=== PATIENT | female | born 1960 | race Caucasian/White ===

== ENCOUNTER 2016-05-20 21:52 | Emergency (ER) | payer OTHER ==
--- NOTE | 2016-05-20 22:50 | ED NURSING NOTES ---
Clinical Report - Nurses [facility] [address] [place] [address] 05/20/2016 21:53 Patient: YELITZA CHRIS TRIAGE Triage time 22:06. Acuity: LEVEL 3. Chief Complaint: NAUSEA and VOMITING and ("high blood pressure" of "145" with headache vomiting x4 since yesterday). Alert. ELLIOTT COMA SCORE: [place] Coma Scale: 15- eyes open spontaneously (4); best verbal response- oriented x 4 (5); best motor response- obeys commands (6). --22:12 Dannie Ndiaye R.N. 22:05 05/20/16. BP: 129/69. HR: 73. RR: 18. O2 saturation: 95% on room air. Temp: 98.4 F (oral). Pain level now: 07/12. --22:12 Dannie Ndiaye R.N. Weight: 84 kg estimated. Height/Length: 66 inches Per Patient. BMI: 29.9. --22:05 Dannie Ndiaye R.N. Medications Naproxen Oral. --22:10 Dannie Ndiaye R.N. Methocarbamol Oral. --22:10 Dannie Ndiaye R.N. Allergies No Known Drug Allergy. --22:07 Dannie Ndiaye R.N. History Arrived by private vehicle. Historian: patient and family. Accompanied by family. This started yesterday. She has had nausea and vomiting. SOCIAL HX: Never smoker. No alcohol use or drug use. SELF HARM ASSESSMENT: A self harm assessment was performed. The patient answered "no" to the question "Have you recently felt down, depressed, or hopeless?", "Have you noticed less interest or pleasure in doing things?", "Do you have thoughts of harming or killing yourself?", "Are you here because you tried to hurt yourself?", "Have you ever tried to hurt yourself before today?" and "Have you recently had thoughts about harming or killing others?". FALL RISK ASSESSMENT: Fall risk assessment completed. No fall risk identified. LEARNING NEEDS ASSESSMENT: The learning needs assessment revealed no barriers. (speaks fijian). SKIN INTEGRITY ASSESSMENT: Skin integrity risk assessment completed. No skin integrity risk identified. --22:12 Dannie Ndiaye R.N. PROBLEMS: Migraine Headache. Hypertension. --22:10 Dannie Ndiaye R.N. ADDITIONAL SURGERIES: Tubal Ligation. --22:10 Dannie Ndiaye R.N. Interventions ID band on patient. To treatment room. --22:12 Dannie Ndiaye R.N. PHYSICAL ASSESSMENT ( Patient states having a headache since yesterday, with nausea and vomiting starting yesterday). GENERAL / NEURO / PSYCH: Alert. Oriented X 4. HEENT: Mucous membranes are pink. RESPIRATORY: Respirations not labored. CVS: Capillary refill less than 2 seconds. GI / : Abdomen soft. SKIN: Skin is warm and dry. --22:13 Dannie Ndiaye R.N. NURSING PROGRESS NOTES Pulse oximeter and NIBP monitor placed on patient. Patient gowned. Reassurance given. Two patient identifiers checked. Call light placed in reach. Side rails up. Bed placed in lowest position. Brakes of bed on. Patient ready for evaluation- chart flagged. Patient waiting for evaluation. --22:13 Dannie Ndiaye R.N. 22:41 05/20/2016 Toradol (Ketorolac Tromethamine) IM 60 mg given. Given in the left gluteus amira. Allergies verified and confirmed 5 rights. --22:46 Dannie Ndiaye R.N. 22:41 05/20/2016 Benadryl (DiphenhydrAMINE HCl) IM 50 mg given. Given in the left gluteus amira. Allergies verified, confirmed 5 rights and sedative warning given to the patient and patient's family. --22:46 Dannie Ndiaye R.N. 22:42 05/20/2016 Reglan (Metoclopramide HCl) IM 10 mg given. Given in the left gluteus amira. Allergies verified and confirmed 5 rights. --22:47 Dannie Ndiaye R.N. DISPOSITION / DISCHARGE Condition at departure: stable. The goals identified in the patient's plan of care were met. Learning barriers present. Ability to learn limited by language barrier; teaching performed with the family. Learning barriers note: patient speaks fijian, understands some welsh and verbalizes understanding, daughter of patient verbalizes undertanding of discharge instructions as well. Discharge instructions provided and reviewed with the patient and family. Reviewed warnings. Reviewed medication(s) side effects, precautions, dosing and course information. Prescription(s) given to the patient. Treatments reviewed. Reviewed referrals for followup. Patient and family verbalized understanding. Written instructions provided in [place] Islander. The patient was discharged home and accompanied by family. She left the Emergency Department ambulatory and via private vehicle. Family member driving. --23:05 Dannie Ndiaye R.N. 23:05 05/20/16. BP: 130/71. HR: 62. RR: 18. O2 saturation: 96% on room air. Temp: 97.8 F. Mcwilliams-French pain scale: 4/10. --23:06 Dannie Ndiaye R.N. Locked/Released at 05/20/2016 23:08 by Dannie Ndiaye R.N.
--- NOTE | 2016-05-20 22:50 | ED CLINICAL REPORT ---
Clinical Report - Physicians/Mid Levels [facility] [address] [place] [address] 05/20/2016 21:53 [id number] Time Seen: 22:14; initial patient contact, initial documentation, patient care assumed. Arrived- By private vehicle. Historian- patient and daughter (pt speaks jordanian). HISTORY OF PRESENT ILLNESS Chief Complaint: VOMITING. This started today and is still present. No recent travel. She has had nausea. She has had vomiting (x4 episodes). No bilious emesis, feculent emesis, blood-tinged emesis, coffee-grounds emesis or frankly bloody emesis. No unusually dark emesis. No diarrhea, black stools, bloody stools, abdominal pain or constipation. No flank pain, history of possible bad food exposure, known contact with a sick individual or change in routine. Has not recently been camping or on antibiotics. The illness is described as moderate. (bp at home was 140/80, concerned that bp was too high). Similar symptoms previously: Frequently, as bad. ( has headaches a couple of times a week). Recent medical care: Not recently seen/assessed. REVIEW OF SYSTEMS No fever, sore throat, cough, chest pain or difficulty breathing. She has had a headache. head hurts all in the front and back, similar to previous headaches. All systems otherwise negative, except as recorded above. PAST HISTORY See nurses notes. PROBLEMS: Migraine Headache. Hypertension. --22:10 Dannie Ndiaye R.N. ADDITIONAL SURGERIES: Tubal Ligation. --22:10 Dannie Ndiaye R.N. SOCIAL HISTORY Never smoker. No alcohol use or drug use. No recent travel. Is a local resident. FAMILY HISTORY Negative. ADDITIONAL NOTES The nursing notes have been reviewed with agreement regarding the chief complaint, HPI, ROS, PMH and patient medications and allergies. PHYSICAL EXAM Vital Signs: 05/20/2016 22:05 BP: 129/69. HR: 73. RR: 18. O2 saturation: 95%. Temp: 98.4 F. Pain level now: 5/10. Have been reviewed as normal and appear to be correct. Appearance: Alert. Oriented X3. No acute distress. Eyes: Pupils equal, round and reactive to light. Eyes normal inspection. ENT: Ears normal. Nose normal. Pharynx normal. Neck: Normal inspection. Neck supple. CVS: Normal heart rate and rhythm. Heart sounds normal. Pulses normal. Respiratory: No respiratory distress. Breath sounds normal. Abdomen: Soft and nontender. Back: Normal inspection. Skin: Skin warm and dry. Normal skin color. No rash. Normal skin turgor. Extremities: Extremities exhibit normal ROM. No lower extremity edema. Neuro: Oriented X 3. No motor deficit. No sensory deficit. PROGRESS AND PROCEDURES Patient and family counseled in person regarding the patient's stable condition and diagnosis. 22:50. Differential Diagnosis: I considered migraine, cluster headache, subarachnoid hemorrhage, intracranial bleed, vascular malformation, cerebral aneurysm, vascular dissection, vasculitis, temporal arteritis, sinusitis, influenza, viral syndrome, analgesic abuse, hypoglycemia, trigeminal neuralgia and occipital neuralgia as a possible cause of headache in this patient. This is a partial list of diagnoses considered. (flu, viral illness). Above considerations are based on history and physical exam. Differential diagnosis was discussed with patient. Disposition: Discharged home in good and improved condition (22:50). Condition: good and stable. CLINICAL IMPRESSION Episodic, poorly controlled periodic headache syndrome. Intractable vomiting with nausea. No dehydration or volume depletion. Not bilious. INSTRUCTIONS Warnings: GENERAL WARNINGS: Return or contact your physician immediately if your condition worsens or changes unexpectedly, if not improving as expected, or if other problems arise. SPECIFICALLY, return if you develop pain in the abdomen or pelvis, fever, the inability to keep fluids down, blood in vomitus, blood in diarrhea, fainting or lightheadedness. Prescription Medications: Zofran 4 mg: Take 1 orally every six hours as needed for nausea/vomiting. Dispense ten (10). No refills. Substitution is permissible. Fioricet: Take 1-2 orally every 4 hours as needed for headache. Dispense twenty (20). No refills. Substitution is permissible. Follow-up: Follow up with your doctor in about two days even if well. Call for an appointment. Summary of care provided to patient. Understanding of the discharge instructions verbalized by patient. (Electronically signed by Hilary Ortiz A.R.N.P. 05/20/2016 23:30)
--- NOTE | 2016-05-20 22:50 | ED CLINICAL REPORT ---
Clinical Report - Physicians/Mid Levels [facility] [address] [place] [place] [address] 05/20/2016 21:53 [id number] Time Seen: 22:14; initial patient contact, initial documentation, patient care assumed. Arrived- By private vehicle. Historian- patient and daughter (pt speaks [place] islander). HISTORY OF PRESENT ILLNESS Chief Complaint: VOMITING. This started today and is still present. No recent travel. She has had nausea. She has had vomiting (x4 episodes). No bilious emesis, feculent emesis, blood-tinged emesis, coffee-grounds emesis or frankly bloody emesis. No unusually dark emesis. No diarrhea, black stools, bloody stools, abdominal pain or constipation. No flank pain, history of possible bad food exposure, known contact with a sick individual or change in routine. Has not recently been camping or on antibiotics. The illness is described as moderate. (bp at home was 140/80, concerned that bp was too high). Similar symptoms previously: Frequently, as bad. ( has headaches a couple of times a week). Recent medical care: Not recently seen/assessed. REVIEW OF SYSTEMS No fever, sore throat, cough, chest pain or difficulty breathing. She has had a headache. head hurts all in the front and back, similar to previous headaches. All systems otherwise negative, except as recorded above. PAST HISTORY See nurses notes. PROBLEMS: Migraine Headache. Hypertension. --22:10 Dannie Ndiaye R.N. ADDITIONAL SURGERIES: Tubal Ligation. --22:10 Dannie Ndiaye R.N. SOCIAL HISTORY Never smoker. No alcohol use or drug use. No recent travel. Is a local resident. FAMILY HISTORY Negative. ADDITIONAL NOTES The nursing notes have been reviewed with agreement regarding the chief complaint, HPI, ROS, PMH and patient medications and allergies. PHYSICAL EXAM Vital Signs: 05/20/2016 22:05 BP: 129/69. HR: 73. RR: 18. O2 saturation: 95%. Temp: 98.4 F. Pain level now: 5/10. Have been reviewed as normal and appear to be correct. Appearance: Alert. Oriented X3. No acute distress. Eyes: Pupils equal, round and reactive to light. Eyes normal inspection. ENT: Ears normal. Nose normal. Pharynx normal. Neck: Normal inspection. Neck supple. CVS: Normal heart rate and rhythm. Heart sounds normal. Pulses normal. Respiratory: No respiratory distress. Breath sounds normal. Abdomen: Soft and nontender. Back: Normal inspection. Skin: Skin warm and dry. Normal skin color. No rash. Normal skin turgor. Extremities: Extremities exhibit normal ROM. No lower extremity edema. Neuro: Oriented X 3. No motor deficit. No sensory deficit. PROGRESS AND PROCEDURES Patient and family counseled in person regarding the patient's stable condition and diagnosis. 22:50. Differential Diagnosis: I considered migraine, cluster headache, subarachnoid hemorrhage, intracranial bleed, vascular malformation, cerebral aneurysm, vascular dissection, vasculitis, temporal arteritis, sinusitis, influenza, viral syndrome, analgesic abuse, hypoglycemia, trigeminal neuralgia and occipital neuralgia as a possible cause of headache in this patient. This is a partial list of diagnoses considered. (flu, viral illness). Above considerations are based on history and physical exam. Differential diagnosis was discussed with patient. Disposition: Discharged home in good and improved condition (22:50). Condition: good and stable. CLINICAL IMPRESSION Episodic, poorly controlled periodic headache syndrome. Intractable vomiting with nausea. No dehydration or volume depletion. Not bilious. INSTRUCTIONS Warnings: GENERAL WARNINGS: Return or contact your physician immediately if your condition worsens or changes unexpectedly, if not improving as expected, or if other problems arise. SPECIFICALLY, return if you develop pain in the abdomen or pelvis, fever, the inability to keep fluids down, blood in vomitus, blood in diarrhea, fainting or lightheadedness. Prescription Medications: Zofran 4 mg: Take 1 orally every six hours as needed for nausea/vomiting. Dispense ten (10). No refills. Substitution is permissible. Fioricet: Take 1-2 orally every 4 hours as needed for headache. Dispense twenty (20). No refills. Substitution is permissible. Follow-up: Follow up with your doctor in about two days even if well. Call for an appointment. Summary of care provided to patient. Understanding of the discharge instructions verbalized by patient. (Electronically signed by Hilary Ortiz A.R.N.P. 05/20/2016 23:30)
--- NOTE | 2016-05-20 22:50 | ED ORDER SUMMARY ---
..... Patient: YELITZA CHRIS OrderSheet [facility] VisitID: [id number] [address] [place] [address] 56y, F Registration Date/Time: 05/20/2016 ORDER SHEET Weight: 84.0 kg (estimated) Allergies: No Known Drug Allergy GENERAL ORDERS: MEDICATION ORDERS: Toradol IM 60 mg (NOW) (22:25 05/20/2016 HBivens A.R.N.P.) (22:46 DDavis R.N.) Benadryl IM 50 mg (NOW) (22:05/20/2016 HBivens A.R.N.P.) (22:46 DDavis R.N.) - (Reglan 10mg im stat) (22:05/20/2016 HBivens A.R.N.P.) (22:47 DDavis R.N.) IV FLUIDS: ORDER SHEET NOTES: [Electronically signed by Dannie Ndiaye R.N. (23:08 05/20/2016)] [Electronically signed by Hilary OrtizRJustineN.PJustine (23:30 05/20/2016)] [Electronically locked/signed by Dannie Ndiaye R.N. (23:05/20/2016)]
--- NOTE | 2016-05-20 22:50 | ED ORDER SUMMARY ---
..... Patient: YELITZA CHRIS OrderSheet [facility] VisitID: [id number] [address] [place] [address] 56y, F Registration Date/Time: 05/20/2016 ORDER SHEET Weight: 84.0 kg (estimated) Allergies: No Known Drug Allergy GENERAL ORDERS: MEDICATION ORDERS: Toradol IM 60 mg (NOW) (22:25 05/20/2016 HBivens A.R.N.P.) (22:46 DDavis R.N.) Benadryl IM 50 mg (NOW) (22:05/20/2016 HBivens A.R.N.P.) (22:46 DDavis R.N.) - (Reglan 10mg im stat) (22:05/20/2016 HBivens A.R.N.P.) (22:47 DDavis R.N.) IV FLUIDS: ORDER SHEET NOTES: [Electronically signed by Dannie Ndiaye R.N. (23:08 05/20/2016)] [Electronically signed by Hilary OrtizRJustineN.PJustine (23:30 05/20/2016)] [Electronically locked/signed by Dannie Ndiaye R.N. (23:05/20/2016)]
--- NOTE | 2016-05-20 22:50 | ED NURSING NOTES ---
Clinical Report - Nurses [facility] [address] [place] [address] 05/20/2016 21:53 Patient: YELITZA CHRIS TRIAGE Triage time 22:06. Acuity: LEVEL 3. Chief Complaint: NAUSEA and VOMITING and ("high blood pressure" of "145" with headache vomiting x4 since yesterday). Alert. ELLIOTT COMA SCORE: [place] Coma Scale: 15- eyes open spontaneously (4); best verbal response- oriented x 4 (5); best motor response- obeys commands (6). --22:12 Dannie Ndiaye R.N. 22:05 05/20/16. BP: 129/69. HR: 73. RR: 18. O2 saturation: 95% on room air. Temp: 98.4 F (oral). Pain level now: 07/12. --22:12 Dannie Ndiaye R.N. Weight: 84 kg estimated. Height/Length: 66 inches Per Patient. BMI: 29.9. --22:05 Dannie Ndiaye R.N. Medications Naproxen Oral. --22:10 Dannie Ndiaye R.N. Methocarbamol Oral. --22:10 Dannie Ndiaye R.N. Allergies No Known Drug Allergy. --22:07 Dannie Ndiaye R.N. History Arrived by private vehicle. Historian: patient and family. Accompanied by family. This started yesterday. She has had nausea and vomiting. SOCIAL HX: Never smoker. No alcohol use or drug use. SELF HARM ASSESSMENT: A self harm assessment was performed. The patient answered "no" to the question "Have you recently felt down, depressed, or hopeless?", "Have you noticed less interest or pleasure in doing things?", "Do you have thoughts of harming or killing yourself?", "Are you here because you tried to hurt yourself?", "Have you ever tried to hurt yourself before today?" and "Have you recently had thoughts about harming or killing others?". FALL RISK ASSESSMENT: Fall risk assessment completed. No fall risk identified. LEARNING NEEDS ASSESSMENT: The learning needs assessment revealed no barriers. (speaks lao). SKIN INTEGRITY ASSESSMENT: Skin integrity risk assessment completed. No skin integrity risk identified. --22:12 Dannie Ndiaye R.N. PROBLEMS: Migraine Headache. Hypertension. --22:10 Dannie Ndiaye R.N. ADDITIONAL SURGERIES: Tubal Ligation. --22:10 Dannie Ndiaye R.N. Interventions ID band on patient. To treatment room. --22:12 Dannie Ndiaye R.N. PHYSICAL ASSESSMENT ( Patient states having a headache since yesterday, with nausea and vomiting starting yesterday). GENERAL / NEURO / PSYCH: Alert. Oriented X 4. HEENT: Mucous membranes are pink. RESPIRATORY: Respirations not labored. CVS: Capillary refill less than 2 seconds. GI / : Abdomen soft. SKIN: Skin is warm and dry. --22:13 Dannie Ndiaye R.N. NURSING PROGRESS NOTES Pulse oximeter and NIBP monitor placed on patient. Patient gowned. Reassurance given. Two patient identifiers checked. Call light placed in reach. Side rails up. Bed placed in lowest position. Brakes of bed on. Patient ready for evaluation- chart flagged. Patient waiting for evaluation. --22:13 Dannie Ndiaye R.N. 22:41 05/20/2016 Toradol (Ketorolac Tromethamine) IM 60 mg given. Given in the left gluteus amira. Allergies verified and confirmed 5 rights. --22:46 Dannie Ndiaye R.N. 22:41 05/20/2016 Benadryl (DiphenhydrAMINE HCl) IM 50 mg given. Given in the left gluteus amira. Allergies verified, confirmed 5 rights and sedative warning given to the patient and patient's family. --22:46 Dannie Ndiaye R.N. 22:42 05/20/2016 Reglan (Metoclopramide HCl) IM 10 mg given. Given in the left gluteus amira. Allergies verified and confirmed 5 rights. --22:47 Dannie Ndiaye R.N. DISPOSITION / DISCHARGE Condition at departure: stable. The goals identified in the patient's plan of care were met. Learning barriers present. Ability to learn limited by language barrier; teaching performed with the family. Learning barriers note: patient speaks lao, understands some turkmen and verbalizes understanding, daughter of patient verbalizes undertanding of discharge instructions as well. Discharge instructions provided and reviewed with the patient and family. Reviewed warnings. Reviewed medication(s) side effects, precautions, dosing and course information. Prescription(s) given to the patient. Treatments reviewed. Reviewed referrals for followup. Patient and family verbalized understanding. Written instructions provided in Cym[place]. The patient was discharged home and accompanied by family. She left the Emergency Department ambulatory and via private vehicle. Family member driving. --23:05 Dannie Ndiaye R.N. 23:05 05/20/16. BP: 130/71. HR: 62. RR: 18. O2 saturation: 96% on room air. Temp: 97.8 F. Mcwilliams-French pain scale: 4/10. --23:06 Dannie Ndiaye R.N. Locked/Released at 05/20/2016 23:08 by Dannie Ndiaye R.N.
--- NOTE | 2016-05-20 23:30 | ED MAR SUMMARY ---
..... Medication Administration Record [facility] [address] [place] [address] Patient: YELITZA CHRIS Visit ID: [id number] 56y, F Weight: 84.0 kg Height/Length: 66 in BMI: 29.9 ALLERGIES: No Known Drug Allergy Given 22:05/20/2016 Dannie Ndiaye RJustineN. Medication Administered: TORADOL [IM] (KETOROLAC TROMETHAMINE), Dose: 60 mg IM. Medication Ordered: Toradol IM 60 mg (NOW). Given 22:05/20/2016 Dannie Ndiaye R.N. Medication Administered: BENADRYL [IM] (DIPHENHYDRAMINE HCL), Dose: 50 mg IM. Medication Ordered: Benadryl IM 50 mg (NOW). Given 22:05/20/2016 Dannie Ndiaye, R.N. Medication Administered: REGLAN [IM] (METOCLOPRAMIDE HCL), Dose: 10 mg IM. Medication Ordered: - (Reglan 10mg im stat).
--- NOTE | 2016-05-20 23:30 | ED MED RECONCILIATION SUMMARY ---
Patient: YELITZA CHRIS Medication Reconciliation Report [facility] VisitID: [id number] [address] [place] [address] 56y, F Registration Date/Time: 05/20/2016 Weight: 84.0 kg Height/Length: 66 in. BMI: 29.9 ALLERGIES: No Known Drug Allergy The patient's Home Medications are listed below: THE FOLLOWING MEDICATIONS NEED TO BE RECONCILED: Methocarbamol Oral Naproxen Oral The source(s) of the original Home Medication information: Not obtained. The following Medications were given to the patient in the Emergency Department: Toradol [IM] IM 60 mg, administered: 05/20/2016 10:41:00 PM Benadryl [IM] IM 50 mg, administered: 05/20/2016 10:41:00 PM Reglan [IM] IM 10 mg, administered: 05/20/2016 10:42:00 PM The following Medications were prescribed to the patient: Zofran 4 mg: Take 1 orally every six hours as needed for nausea/vomiting. Dispense ten (10). No refills. Substitution is permissible. -- Hilary Ortiz, A.R.N.P. Fioricet: Take 1-2 orally every 4 hours as needed for headache. Dispense twenty (20). No refills. Substitution is permissible. -- Hilary Ortiz A.R.N.P.
--- NOTE | 2016-05-20 23:30 | ED DISCHARGE INSTRUCTIONS ---
Patient: YELITZA CHRIS General Instructions [facility] VisitID: [id number] [place] [address] 56y, F Registration Date/Time: 05/20/2016 Episodic, poorly controlled periodic headache syndrome. Intractable vomiting with nausea. No dehydration or volume depletion. Not bilious. INSTRUCTIONS Warnings: GENERAL WARNINGS: Return or contact your physician immediately if your condition worsens or changes unexpectedly, if not improving as expected, or if other problems arise. SPECIFICALLY, return if you develop pain in the abdomen or pelvis, fever, the inability to keep fluids down, blood in vomitus, blood in diarrhea, fainting or lightheadedness. Prescription Medications: Zofran 4 mg: Take 1 orally every six hours as needed for nausea/vomiting. Dispense ten (10). No refills. Substitution is permissible. Fioricet: Take 1-2 orally every 4 hours as needed for headache. Dispense twenty (20). No refills. Substitution is permissible. Follow-up: Follow up with your doctor in about two days even if well. Call for an appointment. Summary of care provided to patient. Understanding of the discharge instructions verbalized by patient. ADDITIONAL INFORMATION Vomiting [6Yr-Adult] Vomiting is a common symptom that may be due to different causes. These include gastroenteritis ("stomach flu"), food poisoning and gastritis. There are other more serious causes of vomiting which may be hard to diagnose early in the illness. Therefore, it is important to watch for the warning signs listed below. The main danger from repeated vomiting is dehydration. This is due to excess loss of water and minerals from the body. When this occurs, body fluids must be replaced. Home Care: If symptoms are severe, rest at home for the next 24 hours. You may use acetaminophen (Tylenol) or ibuprofen (Motrin, Advil) to control fever, unless another medicine was prescribed. [NOTE : If you have chronic liver or kidney disease or ever had a stomach ulcer or GI bleeding, talk with your doctor before using these medicines.] (Aspirin should never be used in anyone under 18 years of age who is ill with a fever. It may cause severe liver damage.) Avoid tobacco and alcohol use, which may worsen your symptoms. If medicines for vomiting were prescribed, take as directed. Once vomiting stops, then follow these guidelines: During The First 12-24 Hours follow the diet below: FRUIT JUICES: Apple, grape juice, clear fruit drinks, and electrolyte replacement drinks. BEVERAGES: Soft drinks without caffeine; mineral water (plain or flavored), decaffeinated tea and coffee. SOUPS: Clear broth, consomm and bouillon DESSERTS: Plain gelatin, popsicles and fruit juice bars. As you feel better, you may add 6-8 ounces of yogurt per day. During The Next 24 Hours you may add the following to the above: Hot cereal, plain toast, bread, rolls, crackers Plain noodles, rice, mashed potatoes, chicken noodle or rice soup Unsweetened canned fruit (avoid pineapple), bananas Limit caffeine and chocolate. No spices or seasonings except salt. During The Next 24 Hours Gradually resume a normal diet, as you feel better and your symptoms lessen. Follow Up with your doctor as advised if you are not improving over the next 2-3 days. Get Prompt Medical Attention if any of the following occur: Constant right-sided lower abdominal pain or increasing general abdominal pain Continued vomiting (unable to keep liquids down) for 24 hours Frequent diarrhea (more than 5 times a day); blood (red or black color) or mucus in diarrhea Reduced urine output or extreme thirst Weakness, dizziness or fainting Unusually drowsy or confused Fever of 100.4F (38C) oral or higher, not better with fever medication Yellow color of the eyes or skin Headache [Unspecified] The cause of your headache today is not clear, but it does not appear to be the sign of any serious illness. Under stress, some people tense the muscles of their shoulder, neck and scalp without knowing it. If this condition lasts long enough, a TENSION HEADACHE can occur. A MIGRAINE HEADACHE is caused by changes in blood flow to the brain. A migraine attack may be triggered by emotional stress, hormone changes during the menstrual cycle, oral contraceptives, alcohol use, certain foods containing tyramine, eye strain, weather changes, missing meals, lack of sleep or oversleeping. Other causes of headache include a viral illness with high fever, head injury with concussion, sinus, ear or throat infection, dental pain and TMJ (jaw joint) pain. More serious but less common causes of headache include stroke, brain hemorrhage, brain tumor, meningitis and encephalitis. Home Care: If you were given pain medicine for this headache, do not drive yourself home. Arrange for a ride, instead. When you get home, try to sleep. You should feel much better when you wake up. Apply heat to the back of your neck to relieve neck muscle spasm. Migraine headaches may respond best to an ice pack on the forehead or at the base of the skull. If you are having nausea or vomiting, follow a light diet until your headache is relieved. If you have a migraine type headache, use sunglasses when in the daylight or around bright indoor lighting until symptoms improve. Bright glaring light can worsen this kind of headache. Follow Up with your doctor if the headache is not better within the next 24 hours. If you have frequent headaches you should discuss a treatment plan with your primary care doctor. By being aware of the earliest signs of headache, and starting treatment right away, you may be able to stop the pain yourself. Get Prompt Medical Attention if any of the following occur: Worsening of your head pain or no improvement within 24 hours Repeated vomiting (unable to keep liquids down) Fever of 100.4F (38C) or higher, or as directed by your healthcare provider Stiff neck Extreme drowsiness, confusion or fainting Dizziness, vertigo (dizziness with spinning sensation) Weakness of an arm or leg or one side of the face Difficulty with speech or vision Ondansetron Oral disintegrating tablet What is this medicine? ONDANSETRON (on WAQAS se bekah) is used to treat nausea and vomiting caused by chemotherapy. It is also used to prevent or treat nausea and vomiting after surgery. How should I use this medicine? These tablets are made to dissolve in the mouth. Do not try to push the tablet through the foil backing. With dry hands, peel away the foil backing and gently remove the tablet. Place the tablet in the mouth and allow it to dissolve, then swallow. While you may take these tablets with water, it is not necessary to do so. Talk to your [facility] specialist regarding the use of this medicine in children. Special care may be needed. What side effects may I notice from receiving this medicine? Side effects that you should report to your doctor or health health and social care teacher as soon as possible: allergic reactions like skin rash, itching or hives, swelling of the face, lips, or tongue breathing problems dizziness fast or irregular heartbeat feeling faint or lightheaded, falls fever and chills swelling of the hands and feet tightness in the chest Side effects that usually do not require medical attention (report to your doctor or health health and social care teacher if they continue or are bothersome): constipation or diarrhea headache What may interact with this medicine? Do not take this medicine with any of the following medications: -apomorphine -cisapride -dofetilide -dronedarone -pimozide -thioridazine -ziprasidone This medicine may also interact with the following medications: -carbamazepine -phenytoin -rifampicin -tramadol -other medicines that prolong the QT interval (cause an abnormal heart rhythm) What if I miss a dose? If you miss a dose, take it as soon as you can. If it is almost time for your next dose, take only that dose. Do not take double or extra doses. Where should I keep my medicine? Keep out of the reach of children. Store between 2 and 30 degrees C (36 and 86 degrees F). Throw away any unused medicine after the expiration date. What should I tell my health care provider before I take this medicine? They need to know if you have any of these conditions: heart disease history of irregular heartbeat liver disease low levels of magnesium or potassium in the blood an unusual or allergic reaction to ondansetron, granisetron, other medicines, foods, dyes, or preservatives or trying to get breast-feeding What should I watch for while using this medicine? Check with your doctor or health health and social care teacher as soon as you can if you have any sign of an allergic reaction. Butalbital, Acetaminophen, Caffeine Oral tablet What is this medicine? ACETAMINOPHEN; BUTALBITAL; CAFFEINE (a set a DONNIE chucky fen; byoo STEVEN bi steven; KAF een) is a pain reliever. It is used to treat tension headaches. How should I use this medicine? Take this medicine by mouth with a full glass of water. Follow the directions on the prescription label. If the medicine upsets your stomach, take the medicine with food or milk. Do not take more than you are told to take. Talk to your [facility] specialist regarding the use of this medicine in children. Special care may be needed. What side effects may I notice from receiving this medicine? Side effects that you should report to your doctor or health health and social care teacher as soon as possible: allergic reactions like skin rash, itching or hives, swelling of the face, lips, or tongue breathing problems confusion feeling faint or lightheaded, falls redness, blistering, peeling or loosening of the skin, including inside the mouth seizure stomach pain yellowing of the eyes or skin Side effects that usually do not require medical attention (report to your doctor or health health and social care teacher if they continue or are bothersome): constipation nausea, vomiting What may interact with this medicine? alcohol or medicines that contain alcohol antidepressants, especially MAOIs like isocarboxazid, phenelzine, tranylcypromine, and selegiline antihistamines benzodiazepines carbamazepine isoniazid medicines for pain like pentazocine, buprenorphine, butorphanol, nalbuphine, tramadol, and propoxyphene muscle relaxants naltrexone phenobarbital, phenytoin, and fosphenytoin phenothiazines like perphenazine, thioridazine, chlorpromazine, mesoridazine, fluphenazine, prochlorperazine, promazine, and trifluoperazine voriconazole What if I miss a dose? If you miss a dose, take it as soon as you can. If it is almost time for your next dose, take only that dose. Do not take double or extra doses. Where should I keep my medicine? Keep out of the reach of children. This medicine can be abused. Keep your medicine in a safe place to protect it from theft. Do not share this medicine with anyone. Selling or giving away this medicine is dangerous and against the law. Store at room temperature between 15 and 30 degrees C (59 and 86 degrees F). Keep container tightly closed. Protect from light. Throw away any unused medicine after the expiration date. What should I tell my health care provider before I take this medicine? They need to know if you have any of these conditions: drink more than 3 alcohol-containing drinks per day drug abuse or addiction heart or circulation problems kidney disease or problems going to the bathroom liver disease lung disease, asthma, or breathing problems porphyria an unusual or allergic reaction to acetaminophen, butalbital or other barbiturates, caffeine, other medicines, foods, dyes, or preservatives or trying to get breast-feeding What should I watch for while using this medicine? Tell your doctor or health health and social care teacher if your pain does not go away, if it gets worse, or if you have new or a different type of pain. You may develop tolerance to the medicine. Tolerance means that you will need a higher dose of the medicine for pain relief. Tolerance is normal and is expected if you take the medicine for a long time. Do not suddenly stop taking your medicine because you may develop a severe reaction. Your body becomes used to the medicine. This does NOT mean you are addicted. Addiction is a behavior related to getting and using a drug for a non-medical reason. If you have pain, you have a medical reason to take pain medicine. Your doctor will tell you how much medicine to take. If your doctor wants you to stop the medicine, the dose will be slowly lowered over time to avoid any side effects. You may get drowsy or dizzy when you first start taking the medicine or change doses. Do not drive, use machinery, or do anything that may be dangerous until you know how the medicine affects you. Stand or sit up slowly. Do not take other medicines that contain acetaminophen with this medicine. Always read labels carefully. If you have questions, ask your doctor or pharmacist. If you take too much acetaminophen get medical help right away. Too much acetaminophen can be very dangerous and cause liver damage. Even if you do not have symptoms, it is important to get help right away. You have been given the following additional information: Vomiting (6Y-Adult) Headache, Unspecified Ondansetron Oral disintegrating tablet Butalbital, Acetaminophen, Caffeine Oral tablet (Electronically signed by Hilary Ortiz A.R.N.P. 05/20/2016 23:30)
--- NOTE | 2016-05-20 23:30 | ED MAR SUMMARY ---
..... Medication Administration Record [facility] [address] [place] [address] Patient: YELITZA CHRIS Visit ID: [id number] 56y, F Weight: 84.0 kg Height/Length: 66 in BMI: 29.9 ALLERGIES: No Known Drug Allergy Given 22:05/20/2016 Dannie Ndiaye RJustineN. Medication Administered: TORADOL [IM] (KETOROLAC TROMETHAMINE), Dose: 60 mg IM. Medication Ordered: Toradol IM 60 mg (NOW). Given 22:05/20/2016 Dannie Ndiaye R.N. Medication Administered: BENADRYL [IM] (DIPHENHYDRAMINE HCL), Dose: 50 mg IM. Medication Ordered: Benadryl IM 50 mg (NOW). Given 22:05/20/2016 Dannie Ndiaye, R.N. Medication Administered: REGLAN [IM] (METOCLOPRAMIDE HCL), Dose: 10 mg IM. Medication Ordered: - (Reglan 10mg im stat).
--- NOTE | 2016-05-20 23:30 | ED MED RECONCILIATION SUMMARY ---
Patient: YELITZA CHRIS Medication Reconciliation Report [facility] VisitID: [id number] [place] [address] [address] 56y, F Registration Date/Time: 05/20/2016 Weight: 84.0 kg Height/Length: 66 in. BMI: 29.9 ALLERGIES: No Known Drug Allergy The patient's Home Medications are listed below: THE FOLLOWING MEDICATIONS NEED TO BE RECONCILED: Methocarbamol Oral Naproxen Oral The source(s) of the original Home Medication information: Not obtained. The following Medications were given to the patient in the Emergency Department: Toradol [IM] IM 60 mg, administered: 05/20/2016 10:41:00 PM Benadryl [IM] IM 50 mg, administered: 05/20/2016 10:41:00 PM Reglan [IM] IM 10 mg, administered: 05/20/2016 10:42:00 PM The following Medications were prescribed to the patient: Zofran 4 mg: Take 1 orally every six hours as needed for nausea/vomiting. Dispense ten (10). No refills. Substitution is permissible. -- Hilary Ortiz, A.R.N.P. Fioricet: Take 1-2 orally every 4 hours as needed for headache. Dispense twenty (20). No refills. Substitution is permissible. -- Hilary Ortiz A.R.N.P.
== END 2016-05-20 23:05 | disposition home or self-care (01) ==
LOC: ED SRH 21:52
DX: G44.211 Episodic tension-type headache, intractable (principal)